=== PATIENT | male | born 1970 | race Caucasian/White ===

== ENCOUNTER 2017-01-18 07:33 | Day surgery (SDC) | payer OTHER ==
[2017-01-18] MEDS ORDERED: D5 LR 1000 ML 1,000 ML IV ONE (07:49)
[2017-01-18] MEDS ORDERED: DIPRIVAN VIAL 20 ML ONE ×2 (08:26→08:39)
[2017-01-18] MEDS ORDERED: XYLOCAINE 2 % (PLAIN) ONE (08:26)
[2017-01-18 09:25] VITALS: BP 118/81
== END 2017-01-18 09:20 | disposition home or self-care (01) ==
LOC: SURG1 07:33
PROVIDERS: ATTEND Internal Medicine Gastroenterology
PROC: 0DBN8ZX Excision of Sigmoid Colon, Via Natural or Artificial Opening Endoscopic, Diagnostic (ICD-10-PCS; principal; 2017-01-18 16:30)
PROC: 0DTN0ZZ Resection of Sigmoid Colon, Open Approach (ICD-10-PCS; principal; 2017-01-18 16:30)
PROC: 0DJD8ZZ Inspection of Lower Intestinal Tract, Via Natural or Artificial Opening Endoscopic (ICD-10-PCS; principal; 2017-01-18 16:30)
DX: Z12.11 Encounter for screening for malignant neoplasm of colon (principal); Z80.0 Family history of malignant neoplasm of digestive organs; K63.5 Polyp of colon; K64.0 First degree hemorrhoids
CPT/HCPCS: A4217; J2001; J3490; J7120